=== PATIENT | female | born 1970 | race Caucasian/White ===

== ENCOUNTER 2020-08-12 19:53 | Emergency (ER) | payer BC ==
[2020-08-12] MEDS ORDERED: Sodium Chloride 0.9% 10 ML Syringe FLUSH PRN (20:22)
[2020-08-12] MEDS ORDERED: Sodium Chloride 0.9% 2.5 ML Syringe FLUSH PRN (20:22)
[2020-08-12] MEDS ORDERED: Sodium Chloride 0.9% 1,000 ML IV ONE (20:24)
[2020-08-12] MEDS ORDERED: Ketorolac 30 MG/ML SDV IVPUSH ONE (20:25)
[2020-08-12] MEDS ORDERED: Ketorolac 15 MG/ML SDV ONE (20:26)
[2020-08-12] MEDS ORDERED: Sodium Chloride 0.9% 1,000 ML IV SCH (20:30)
--- NOTE | 2020-08-12 20:30 | EDM.PDOC ---
ED HPI GENERAL MEDICAL PROBLEM - General Chief Complaint: Fever Stated Complaint: COVID, COUGH, FEVER Time Seen by Provider: 08/12/20 20:01 - History of Present Illness INITIAL COMMENTS - FREE TEXT/NARRATIVE: History of present illness: The patient got a fever 1 week ago today. The next day she was diagnosed positive with COVID-19. She has muscle aches body aches change in appetite, change in taste, inability to eat solid food. She feels overwhelming weakness. She is getting worse gradually. She suffers with fever constantly since. She also has not eaten or drunk much and sometimes goes a day without much urine output. The patient lives alone does not work and does not go to school. [] Review of systems: As per history of present illness and below otherwise all systems reviewed and negative. Past medical history: As per history of present illness and as reviewed below otherwise noncontributory. Surgical history: As per history of present illness and as reviewed below otherwise noncontributory. Social history: No reported history of drug or alcohol abuse. Family history: As per history of present illness and as reviewed below otherwise noncontributory. Physical exam: Constitutional - well developed, well-nourished and appears distressed. Appears like she does not want to move about much because her muscles ache. HEENT -NC sign is negative. Normocephalic, no evidence of trauma - external nose and mouth normal - no mass in neck and no JVD - mucosae dry EYES - full EOM, PERRL, no icterus - no evidence of inflammation, injection, or drainage Respiratory - no respiratory distress, equal bilateral expansion, lungs clear to auscultation and no abnormal lung sounds Cardiovascular - Regular Rhythm with S1 and S2 appreciated and no murmur, gallop or rub. GI - abdomen soft without distension or organomegaly - normal bowel sounds - no guard or rebound Musculoskeletal no gross deformity of long bones or joints - no tenderness, swelling or edema Neurologic - Alert and oriented times four - CN II-XII grossly intact - motor sensory and coordination symmetrically normal Psychiatric - appropriate mood and affect with normal thought content Hematologic - No petechiae or purpura - mucosa appropriate color and sclera not pale - normal nail bed color and refill Integument - no rash or evidence of trauma - normal turgor Diagnostics: [] Therapeutics: [] Impression: [] Plan: [] Definitive disposition and diagnosis as appropriate pending reevaluation and review of above. Head Pain Score (Numeric/FACES): 8 - Related Data Allergies Allergy/AdvReac Type Severity Reaction Status Date / Time amantadine Allergy Hives Verified 08/12/20 19:59 Home Meds: Home Meds Aspirin [Adult Low Dose Aspirin EC] 1 dose PO DAILY 08/12/20 [History] Clopidogrel [Plavix] 1 dose PO DAILY 08/12/20 [History] Past Medical History HEENT History: Reports: None Cardiovascular History: Reports: Other (See Below) Other Cardiovascular History: Reports having a congenital heart defect Respiratory History: Reports: None Gastrointestinal History: Reports: None Genitourinary History: Reports: None HARMONICA MAKER History: Reports: None Musculoskeletal History: Reports: None Neurological History: Reports: None Psychiatric History: Reports: None Endocrine/Metabolic History: Reports: None Hematologic History: Reports: None Oncologic (Cancer) History: Reports: None Dermatologic History: Reports: None - Infectious Disease History Infectious Disease History: Reports: Chicken Pox, Novel Coronavirus - Past Surgical History Head Surgeries/Procedures: Reports: None Female Surgical History: Reports: None Social & Family History - Tobacco Use Tobacco Use Status *Q: Never Tobacco User - Caffeine Use Caffeine Use: Reports: Coffee, Soda - Recreational Drug Use Recreational Drug Use: No ED ROS GENERAL - Review of Systems Review Of Systems: Comprehensive ROS is negative, except as noted in HPI. ED EXAM, GENERAL - Physical Exam Exam: See Below Free Text/Narrative:: My physical exam is in the HPI. Course - Vital Signs Text/Narrative:: 2048 hrs. the patient has diffuse peripheral infiltrates in the right side. Lungs are well expanded. There is no other definite abnormality. Its not diffuse or is: Is many Covid patient x-rays when they are suffering from bilateral pneumonia. 2115 hrs. The patient looks better and feels better. Saturation 94% on room air. Discharged in satisfactory condition. Last Recorded V/S: Last Vital Signs Temp 38.8 C H 08/12/20 20:00 Pulse 82 08/12/20 20:00 Resp 16 08/12/20 20:00 BP 120/48 L 08/12/20 20:00 Pulse Ox 94 L 08/12/20 20:00 - Orders/Labs/Meds Orders: Active Orders 24 hr Category Date Time Status Sodium Chloride 0.9% [Normal Saline] 1,000 ml Med 08/12/20 20:24 Active IV .Bolus Sodium Chloride 0.9% [Saline Flush] Med 08/12/20 20:22 Active 10 ml FLUSH ASDIRECTED PRN Sodium Chloride 0.9% [Saline Flush] Med 08/12/20 20:22 Active 2.5 ml FLUSH ASDIRECTED PRN Saline Lock Insert [OM.PC] Stat Oth 08/12/20 20:22 Ordered Medication Orders Sodium Chloride (Normal Saline) 1,000 mls @ 1,000 mls/hr IV .Bolus ONE Stop: 08/12/20 21:23 Last Admin: 08/12/20 20:31 Dose: 1,000 mls/hr Documented by: SUDEEP Sodium Chloride (Saline Flush) 10 ml FLUSH ASDIRECTED PRN PRN Reason: Keep Vein Open Sodium Chloride (Saline Flush) 2.5 ml FLUSH ASDIRECTED PRN PRN Reason: Keep Vein Open Labs: Laboratory Tests 08/12/20 08/12/20 08/12/20 Range/Units 20:25 20:30 20:30 WBC 9.25 (4.0-11.0) K/uL RBC 4.80 (4.30-5.90) M/uL Hgb 14.3 (12.0-16.0) g/dL Hct 42.8 (36.0-46.0) % MCV 89.2 (80.0-98.0) fL MCH 29.8 (27.0-32.0) pg MCHC 33.4 (31.0-37.0) g/dL RDW Std Deviation 43.9 (28.0-62.0) fl RDW Coeff of Gato 13 (11.0-15.0) % Plt Count 193 (150-400) K/uL MPV 11.10 (7.40-12.00) fL Neut % (Auto) 74.7 (48.0-80.0) % Lymph % (Auto) 18.8 (16.0-40.0) % [place] % (Auto) 6.4 (0.0-15.0) % Eos % (Auto) 0.0 (0.0-7.0) % Baso % (Auto) 0.1 (0.0-1.5) % Neut # (Auto) 6.9 H (1.4-5.7) K/uL Lymph # (Auto) 1.7 (0.6-2.4) K/uL [place] # (Auto) 0.6 (0.0-0.8) K/uL Eos # (Auto) 0.0 (0.0-0.7) K/uL Baso # (Auto) 0.0 (0.0-0.1) K/uL Nucleated RBC % 0.0 /100WBC Nucleated RBCs # 0 K/uL Sodium 138 (136-145) mmol/L Potassium 3.8 (3.5-5.1) mmol/L Chloride 103 (98-107) mmol/L Carbon Dioxide 28.3 (21.0-32.0) mmol/L BUN 12 (7.0-18.0) mg/dL Creatinine 1.2 H (0.6-1.0) mg/dL Est Cr Clr Drug Dosing 57.83 mL/min Estimated GFR (MDRD) 47.9 ml/min Glucose 120 H (74-106) mg/dL Calcium 8.4 L (8.5-10.1) mg/dL Total Bilirubin 1.2 H (0.2-1.0) mg/dL AST 54 H (15-37) IU/L ALT 89 H (14-63) IU/L Alkaline Phosphatase 121 H (46-116) U/L Creatine Kinase 54 (26-308) U/L Total Protein 7.8 (6.4-8.2) g/dL Albumin 3.8 (3.4-5.0) g/dL Globulin 4.0 (2.6-4.0) g/dL Albumin/Globulin Ratio 0.9 (0.9-1.6) Urine Color YELLOW Urine Appearance CLEAR Urine pH 5.5 (5.0-8.0) Ur Specific [place] 1.020 (1.001-1.035) Urine Protein NEGATIVE (NEGATIVE) mg/dL Urine Glucose (UA) NEGATIVE (NEGATIVE) mg/dL Urine Ketones NEGATIVE (NEGATIVE) mg/dL Urine Occult Blood NEGATIVE (NEGATIVE) Urine Nitrite NEGATIVE (NEGATIVE) Urine Bilirubin NEGATIVE (NEGATIVE) Urine Urobilinogen 0.2 (<2.0) EU/dL Ur Leukocyte Esterase NEGATIVE (NEGATIVE) Meds: Medications Generic Name Dose Route Start Last Admin Trade Name Freq PRN Reason Stop Dose Admin Sodium Chloride 1,000 mls @ 1,000 mls/hr 08/12/20 20:24 08/12/20 20:31 Normal Saline IV 08/12/20 21:23 1,000 mls/hr .Bolus ONE Administration Sodium Chloride 10 ml 08/12/20 20:22 Saline Flush FLUSH ASDIRECTED PRN Keep Vein Open Sodium Chloride 2.5 ml 08/12/20 20:22 Saline Flush FLUSH ASDIRECTED PRN Keep Vein Open Discontinued Medications Generic Name Dose Route Start Last Admin Trade Name Freq PRN Reason Stop Dose Admin Sodium Chloride 1,000 mls @ 100 mls/hr 08/12/20 20:30 Normal Saline IV ASDIRECTED NANCY Ketorolac Tromethamine 15 mg 08/12/20 20:25 08/12/20 20:32 Toradol IVPUSH 08/12/20 20:26 Not Given ONETIME ONE Ketorolac Tromethamine Confirm 08/12/20 20:26 08/12/20 20:32 Toradol Administered 08/12/20 20:27 Not Given Dose 15 mg .ROUTE .STK-MED ONE Ketorolac Tromethamine 15 mg 08/12/20 20:31 08/12/20 20:33 Toradol IVPUSH 08/12/20 20:32 15 mg NOW STA Administration Departure - Departure Time of Disposition: 21:18 Disposition: Home, Self-Care 01 Condition: Good Clinical Impression: COVID-19, Myalgia, Anorexia - Discharge Information Instructions: COVID-19 Frequently Asked Questions, COVID-19: How to Protect Yourself and Others - CDC, Prevent the Spread of COVID-19 if You Are Sick - CDC Referrals: PCP,None [Primary Care Provider] - Forms: ED Department Discharge Additional Instructions: Drink lots of soup, drink Gatorade. Try to force herself to eat nutritional things. Rest. If you are significantly short of breath return. [facility] [address] [place] [id number] [id number] The following information is given to patients seen in the emergency department who are being discharged to home. This information is to outline your options for follow-up care. We provide all patients seen in our emergency department with a follow-up referral. The need for follow-up, as well as the timing and circumstances, are variable depending upon the specifics of your emergency department visit. If you don't have a primary care physician on staff, we will provide you with a referral. We always advise you to contact your personal physician following an emergency department visit to inform them of the circumstance of the visit and for follow-up with them and/or the need for any referrals to a consulting specialist. The emergency department will also refer you to a specialist when appropriate. This referral assures that you have the opportunity for follow-up care with a specialist. All of these measure are taken in an effort to provide you with optimal care, which includes your follow-up. Under all circumstances we always encourage you to contact your private physician who remains a resource for coordinating your care. When calling for follow-up care, please make the office aware that this follow-up is from your recent emergency room visit. If for any reason you are refused follow-up, please contact the [facility] Emergency Department at and asked to speak to the emergency department charge nurse. Sepsis Event Note (ED) - Evaluation Sepsis Screening Result: No Definite Risk - Focused Exam Vital Signs: Vital Signs Temp Pulse Resp BP Pulse Ox 08/12/20 20:00 38.8 C H 82 16 120/48 L 94 L - My Orders Last 24 Hours: My Active Orders 08/12/20 20:22 Sodium Chloride 0.9% [Saline Flush] 10 ml FLUSH ASDIRECTED PRN Sodium Chloride 0.9% [Saline Flush] 2.5 ml FLUSH ASDIRECTED PRN Saline Lock Insert [OM.PC] Stat 08/12/20 20:24 Sodium Chloride 0.9% [Normal Saline] 1,000 ml IV .Bolus - Assessment/Plan Last 24 Hours: My Active Orders 08/12/20 20:22 Sodium Chloride 0.9% [Saline Flush] 10 ml FLUSH ASDIRECTED PRN Sodium Chloride 0.9% [Saline Flush] 2.5 ml FLUSH ASDIRECTED PRN Saline Lock Insert [OM.PC] Stat 08/12/20 20:24 Sodium Chloride 0.9% [Normal Saline] 1,000 ml IV .Bolus
[2020-08-12] MEDS ORDERED: Ketorolac 15 MG/ML SDV IVPUSH STA (20:31)
--- NOTE | 2020-08-12 20:42 | CR ---
INDICATION: COVID-19 with weakness TECHNIQUE: Chest 1 view COMPARISON: None FINDINGS: Cardiovascular and mediastinum: Heart size and vasculature are normal in caliber and appearance. Lungs and pleural spaces: Ill-defined parenchymal densities are present bilaterally with airspace densities more prominent in the right lung base. No effusion or pneumothorax. Bones and soft tissues: No significant findings. IMPRESSION: Patchy bilateral ground-glass opacities particularly in the right lung base consistent with COVID. Dictated by Hans Whitmore MD @ Aug 12 2020 8:41PM Signed by Dr. Hans Whitmore @ Aug 12 2020 8:42PM
[2020-08-12 21:06] LABS: CARBON DIOXIDE,CO2 28.3 mmol/L (21.0-32.0); POTASSIUM,K 3.8 mmol/L (3.5-5.1)
== END 2020-08-12 21:45 | disposition home or self-care (01) ==
LOC: MW.ED 19:53
DX: U07.1 COVID-19 (principal); R63.0 Anorexia; Z88.8 Allergy status to other drugs, medicaments and biological substances
CPT/HCPCS: 36415; 71045; 80053; 81003; 82550; 85025; 96374; 99283; J1885; J7030

== ENCOUNTER 2022-08-30 17:45 | Emergency (ER) | payer BC, OTHER | END 2022-08-30 21:22 | disposition left against medical advice (07) | LOC: MW.ED 17:45 | DX: Z53.21 Procedure and treatment not carried out due to patient leaving prior to being seen by health care provider (principal) ==

== ENCOUNTER 2022-12-15 17:24 | Emergency (ER) | payer BC, OTHER ==
[2022-12-15] MEDS ORDERED: Ketorolac 60 MG/2 ML SDV IM ONE (17:58)
[2022-12-15] MEDS ORDERED: Orphenadrine 60 MG/2 ML Inj IM ONE (17:58)
== END 2022-12-15 18:24 | disposition home or self-care (01) ==
LOC: MW.ED 17:24
DX: M54.42 Lumbago with sciatica, left side (principal); Z88.8 Allergy status to other drugs, medicaments and biological substances; Z79.82 Long term (current) use of aspirin; Z86.16 Personal history of COVID-19
CPT/HCPCS: 96372; 99283; J1885; J2360